=== PATIENT | male | born 1960 | race Caucasian/White ===

== ENCOUNTER → 2017-11-03 | Day surgery (SDC) | payer BC ==
[~2017-11-03] MED LIST: FENTANYL CITRATE/PF 100MCG/2 ML INJ ONE; HYOSCYAMINE SULFATE 0.5 MG/ML AMP ONE; LIDOCAINE HCL 2% LOCAL INJ 5 ML SDV VIAL INJ ONE; LISINOPRIL20 MG PO; MIDAZOLAM HCL 2 MG/2 ML VIAL ONE; PROPOFOL IV EMULSION 10 MG/ML 50 ML VIAL ONE
--- NOTE | 2017-11-03 12:54 | Operative Report ---
DATE OF PROCEDURE: November 03, 2017 REFERRING PHYSICIAN: Dr. Giorgi Crowder. PROCEDURE PERFORMED: Colonoscopy and polypectomy. INDICATIONS FOR COLONOSCOPY: Colorectal cancer screening, history of bright red blood per rectum. MEDICATION: Patient was done under MAC. Please see anesthesiologist's note. PROCEDURE: With the patient in the left lateral decubitus position, the flexible fiberoptic Olympus colonoscope was inserted into the rectum with ease and advanced all the way to the cecum. It was then withdrawn slowly. Mucosa overlying the cecum and ascending colon grossly appeared to be within normal limits. Diverticular disease was noted to be scattered throughout and more prominent in the descending and the sigmoid colon. Nine polyps were removed from the sigmoid colon; 3 were snared, and 6 were hot biopsied. Three polyps were hot biopsied in the rectum. The scope was then retroflexed into the distal rectum and large internal hemorrhoids were noted, none of which was actively bleeding. The scope was then straightened out. It was subsequently withdrawn. Patient tolerated the procedure well. IMPRESSION: 1. Pandiverticulosis. 2. Sigmoid colon polyps times 9, 3 snared and 6 hot biopsied. 3. Rectal polyps times 3 hot biopsied. 4. Large internal hemorrhoids. PLAN: Follow up histology. Initiate high-fiber low-fat diet. Initiate high-fiber supplement. Start hydrocortisone suppository 25 mg b.i.d. times 10 days, then p.r.n. Patient will need a followup colonoscopy in 3 years. Job#: [id number] EV cc:GIORGI CROWDER DO
== END | disposition home or self-care (01) ==
LOC: ENDO 07:27
PROVIDERS: ATTEND Internal Medicine Gastroenterology
DX: Z12.11 Encounter for screening for malignant neoplasm of colon (principal); K63.5 Polyp of colon; K62.1 Rectal polyp; K57.30 Diverticulosis of large intestine without perforation or abscess without bleeding; K64.8 Other hemorrhoids; K92.1 Melena; I10 Essential (primary) hypertension; R00.1 Bradycardia, unspecified; Z01.810 Encounter for preprocedural cardiovascular examination; Z68.27 Body mass index [BMI] 27.0-27.9, adult; Z86.19 Personal history of other infectious and parasitic diseases
CPT/HCPCS: 45384; 45385; 93005; J1980; J2001; J2250; 45378